=== PATIENT | male | born 1995 | race Caucasian/White ===

== ENCOUNTER 2016-10-06 11:33 | Emergency (ER) | payer SELFPAY ==
[~2016-10-06 11:33] MED LIST: ANTIVERT PO; BACTRIM DS TABL1 TA1 PO; BENTYL20 M1 PO; DOXYCYCLINE PO; FLEXERIL10 MG PO; NO MEDICATIONS; PRILOSEC20 M1 PO; PROZAC; SOLODYN65 MG; VOLTAREN75 MG PO
== END 2016-10-06 12:33 | disposition home or self-care (01) ==
LOC: SED 11:33
DX: S30.861A Insect bite (nonvenomous) of abdominal wall, initial encounter (principal); W57.XXXA Bitten or stung by nonvenomous insect and other nonvenomous arthropods, initial encounter
CPT/HCPCS: 99282